=== PATIENT | female | born 1950 | race Caucasian/White ===

== ENCOUNTER 2017-12-03 06:16 | Day surgery (SDC) | payer MEDICARE ==
--- NOTE | 2017-11-25 15:05 | HP ---
AMENDED REPORT NOW INCLUDES COSIGNER DESIGNATION - ESIGNED BEFORE ADJUSTMENTS PREOPERATIVE HISTORY AND PHYSICAL: DATE OF SURGERY/ADMISSION: 12/03/17 DATE OF OFFICE VISIT: 11/11/17 ATTENDING PHYSICIAN: Dr. Nadiya Marcelo.* (DICTATED BY JUSTIN LOUIS) PROCEDURE: Right wrist pisiform excision. CHIEF COMPLAINT: Right wrist pain. HISTORY OF PRESENT ILLNESS: Kimberly is a 67-year-old female who has had right wrist pain since May. She fell down. She complains of persistent pain in the ulnar aspect of her wrist with swelling. It is painful with wrist motion, constantly painful, 5/10. She denies numbness or tingling associated with it. She had a cortisone injection, which helped temporarily. She has failed conservative treatment and has elected to proceed with right wrist pisiform excision. PAST MEDICAL HISTORY: Unremarkable. PAST SURGICAL HISTORY: Bilateral thumb CMC joint arthroplasty, hysterectomy, oophorectomy. MEDICATIONS: 1. B6 natural 100 mg. 2. Estradiol 0.0375 mg. 3. Magnesium oxide 400 mg. 4. Ranitidine 150 mg. 5. Turmeric. ALLERGIES: BACTRIM, CODEINE, MORPHINE, NUCYNTA, SULFA, and TRAMADOL. FAMILY HISTORY: Unremarkable. SOCIAL HISTORY: She denies tobacco, alcohol or recreational drug use. REVIEW OF SYSTEMS: General: Negative for fevers, chills, night sweats. No known anesthesia problems. HEENT: Negative for headaches, lightheadedness, or syncopal episodes. Integumentary: Negative for abrasions, lesions, or open wounds. Cardiothoracic: Negative for chest pain, palpitations, or edema. Negative for hypertension. Pulmonary: Negative for shortness of breath with exertion, chronic cough, COPD. GI: Negative for nausea, vomiting, diarrhea, constipation, or GERD. : Negative for nocturia, urinary frequency. She has positive urinary urgency. Negative for history of UTIs, kidney problems. Musculoskeletal: Positive for current complaints. Negative for chronic or intermittent back pain or fractures. Neuro: Negative for paresthesias, numbness , history of seizures, stroke or epilepsy. Endocrine: Negative for diabetes or thyroid issues. Hematologic: Negative for easy bruising, anemia, excessive bleeding, or history of DVT. Negative for history of MRSA, hepatitis C, or HIV. PHYSICAL EXAMINATION GENERAL: Well-developed, well-nourished 67-year-old female in no acute distress. VITAL SIGNS: Height 64 inches, pulse is 94, blood pressure is 128/70, respirations 16, temperature is 97.3. Pain 2/10. HEENT: Head is normocephalic, atraumatic. NECK: Supple with no palpable lymph nodes. PULMONARY: Lungs clear to auscultation bilaterally. No wheezes, rales, or rhonchi. CARDIO: Regular rate and rhythm. S1, S2. No murmurs, rubs, or gallops. No edema. ABDOMEN: Positive bowel sounds, soft, nontender. NEUROLOGICAL: Alert and oriented x3. Cranial nerves II through XII grossly intact. Sensation intact to light touch distally. MUSCULOSKELETAL: Right wrist, she has pain on the ulnar aspect of her wrist mostly every day. She is tender to palpation between her ECU and FCU tendon. She also gets occasional tingling and numbness in her ulnar nerve distribution. She has positive Tinel's sign over the ulnar nerve at her wrist today. 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 There is a full-thickness cartilage loss, small radiocarpal, mid carpal and distal radioulnar joint effusion. IMPRESSION: Right wrist mass and pain. PLAN: She is scheduled to undergo a right wrist pisiform excision. She will return to the office in 10 to 14 days postop for followup and suture removal. JUSTIN LOUIS [id number]/[facility] #: [id number] [facility]
[~2017-12-03 06:16] MED LIST: Buffered Lidocaine 0.9% SYRIN* 5 ML/SYR SYRINGE INTRADERM ONE; Famotidine IV* 10 MG/ML 2 ML (20 mg) IV ONE
[2017-12-03] MEDS ORDERED: Famotidine IV* 10 MG/ML 2 ML (20 mg) ONE (06:28)
[2017-12-03] MEDS ORDERED: Lidocaine 1% INJ* 10 MG/ML 30 ML SDV ONE (07:06)
[2017-12-03] MEDS ORDERED: Midazolam* 1 MG/ML 5 ML VIAL (5 MG) ONE (07:20)
[2017-12-03] MEDS ORDERED: fentaNYL* 50 MCG/ML 2 ML VIAL (100 MCG VIAL) ONE (07:20)
[2017-12-03] MEDS ORDERED: Bupivacaine 0.5% SDV PF* 30ML VIAL ONE (07:54)
[2017-12-03] MEDS ORDERED: Lidocaine 2% PF * 5 ML VIAL ONE (07:57)
[2017-12-03] MEDS ORDERED: Ondansetron INJ* 2 MG/ML VIAL ONE (07:57)
[2017-12-03] MEDS ORDERED: Dexamethasone IV* 4 MG/ML 1 ML (4 MG) ONE (07:57)
[2017-12-03] MEDS ORDERED: DiMENhydriNATE IV* 50 MG/ML VIAL ONE (07:57)
[2017-12-03] MEDS ORDERED: Propofol* 10 MG/ML 20 ML BTL IV PUSH ONE (07:57)
[2017-12-03] MEDS ORDERED: Ketorolac INJ* 30 MG/ML 1 ML VIAL ONE (07:57)
[2017-12-03] MEDS ORDERED: Acetaminophen TAB* 325 MG PO PRN (08:42)
[2017-12-03] MEDS ORDERED: Naloxone* 0.4 MG/ML 1 ML VIAL IV PRN (08:42)
[2017-12-03] MEDS ORDERED: HYDROmorphone INJ* 1 MG/ML CARPUJECT SYRINGE IV PRN (08:42)
[2017-12-03 09:08] VITALS: BP 127/73
--- NOTE | 2017-12-04 02:09 | OP ---
CC: Nadiya Marcelo MD OPERATIVE NOTE: DATE OF OPERATION: 12/03/17 DATE OF : 50 SURGEON: Nadiya Marcelo MD ATTENDING PATHOLOGIST: JUSTIN Pérez ANESTHESIA: General. PRE-OP DIAGNOSIS: Right pisotriquetral arthritis. POST-OP DIAGNOSIS: Right pisotriquetral arthritis. OPERATIVE PROCEDURE: Right pisiform excision. ESTIMATED BLOOD LOSS: Zero. TOURNIQUET TIME: About 25 minutes. INDICATIONS FOR PROCEDURE: Kimberly is a 67-year-old female who has pain on the ulnar aspect of her wr ist. MRI shows pisotriquetral arthritis. She presents for pisiform excision. DESCRIPTION OF PROCEDURE: The patient was brought to the operating room, was given a general anesthe tic and placed in the supine position on the operating room table. With the tourniquet around her rig ht forearm, the skin of her right hand and forearm was prepped and draped in the usual sterile fashio n. The hand and forearm were exsanguinated and the tourniquet elevated to 250 mmHg. A chevron incis ion was made centered over the pisiform. We dissected bluntly through the subcutaneous tissue. Bran ches of the ulnar nerve were located and retracted by the surgical instrument mechanic, Etelvina Aguilera. The FC U tendon was then split longitudinally and carefully dissected off the pisiform. The pisotriquetral capsule was carefully subperiosteally dissected off the pisiform while the ulnar nerve was protected. The surgical instrument mechanic, Etelvina Aguilera, was essential for completion of the case in a safe manner by protecting the ulnar nerve. Pisiform was completely excised and sent for pathology. The wound was irrigated. The FCU tendon was repaired with a 4- 0 nylon suture and the skin edges reapproximated wi th 4-0 nylon suture. The wound was dressed with Xeroform, 4x4, Webril and an Anthony wrap. The patient tolerated the procedure well, was brought to the recovery room in good condition. [id number]/[facility] #: [id number]
== END 2017-12-03 09:19 | disposition home or self-care (01) ==
LOC: OREAST 06:16
PROVIDERS: ATTEND Orthopaedic Surgery
DX: M19.031 Primary osteoarthritis, right wrist (principal); I10 Essential (primary) hypertension; D46.9 Myelodysplastic syndrome, unspecified; M19.90 Unspecified osteoarthritis, unspecified site; K44.9 Diaphragmatic hernia without obstruction or gangrene; K21.9 Gastro-esophageal reflux disease without esophagitis
CPT/HCPCS: 88304; 88311; J1100; J1240; J1885; J2250; J2405; J2704; J3010

== ENCOUNTER 2020-04-17 18:11 | Inpatient (IN) ==
[2020-04-17] MEDS ORDERED: Heparin - STEMI 5,000 UNITS/ML 1 ml VIAL IV ONE (18:26)
[2020-04-17 18:33] LABS: ABS Lymphocytes 1.7 10^3/ul (1.0-4.8); ABS Monocytes 0.6 10^3/ul (0-0.8); ABS Neutrophils 1.2 10^3/ul (1.5-7.7); Eosinophil % 0.4 %; Hematocrit 44 % (35-47); Hemoglobin 15.2 g/dL (12.0-16.0); Lymphocyte % 47.6 %; Mean Corpuscular HGB Conc 35 g/dL (31-36); Mean Corpuscular Hemoglobin 32 pg (27-31); Mean Corpuscular Volume 92 fL (80-97); Mean Platelet Volume 7.9 fL (7.4-10.4); Platelet Count 332 10^3/uL (150-450); Red Blood Count 4.83 10^6 /uL (3.70-4.87); Red Cell Distribution Width 14 % (10-15); White Blood Count 3.5 10^3/uL (3.5-10.8)
[2020-04-17 18:41] LABS: Activated Partial Thrombo Time 27.4 seconds (26.0-38.0); INR 0.94 (0.82-1.09)
[2020-04-17] MEDS ORDERED: Heparin 1,000 UNIT/ML 10 ml (10,000 UNITS) CATHLAB/DIALYSIS ONE (18:44)
[2020-04-17] MEDS ORDERED: VERAPAMIL 2.5 MG/ML 2 ML VIAL ** 5 mg/2 ml ONE (18:44)
[2020-04-17] MEDS ORDERED: fentaNYL 100 mcg/2 ml 50 MCG/ML VIAL ONE (18:44)
[2020-04-17] MEDS ORDERED: Midazolam 5 mg/5 ml VIAL 1 mg/ml 5 ml VIAL (5 mg) ONE (18:44)
[2020-04-17] MEDS ORDERED: nitroGLYCERIN DRIP 25,000 MCG/250 ML BTL ONE (18:45)
[2020-04-17] MEDS ORDERED: Iohexol 350 (CONTRAST) 200 ML MDV IV ONE ×2 (18:45→18:46)
[2020-04-17] MEDS ORDERED: Lidocaine 1% VIAL 10 MG/ML VIAL ONE (18:45)
[2020-04-17] MEDS ORDERED: Heparin 2 UNITS/ML 1000 mls 3,000 ML IV ONE (18:45)
[2020-04-17 18:50] LABS: ALT 22 U/L (7-52); AST 25 U/L (13-39); Albumin 4.3 g/dL (3.2-5.2); Albumin/Globulin Ratio 1.3 (1-3); Alkaline Phosphatase 57 U/L (34-104); Anion Gap 11 mmol/L (2-11); BUN/Creatinine Ratio 12.8 (8-20); Blood Urea Nitrogen 10 mg/dL (6-24); CO2 Carbon Dioxide 22 mmol/L (22-32); Calcium 8.7 mg/dL (8.6-10.3); Chloride 104 mmol/L (101-111); Creatine Kinase 75 U/L (10-223); EGFR African American 88.6 (>60); EGFR Non-African American 73.2 (>60); Globulin 3.3 g/dL (2-4); Glucose 134 mg/dL (70-100); LDL Cholesterol Direct 114 mg/dL; Potassium 3.6 mmol/L (3.5-5.0); Sodium 137 mmol/L (135-145); Total Protein 7.6 g/dL (6.4-8.9)
[2020-04-17 18:54] LABS: Troponin I 0.08 ng/mL (<0.03)
[2020-04-17] MEDS ORDERED: Phenylephrine IV 10 MG/ML 1 ml VIAL ONE (19:38)
[2020-04-17] MEDS ORDERED: Atropine 0.1 MG/ML 10 ml SYR (1 mg) ONE (20:01)
[2020-04-17] MEDS ORDERED: NS 0.9% IV ONE (20:12)
[2020-04-17] MEDS ORDERED: Ondansetron 4 mg VIAL 2 MG/ML 2 ml VIAL ONE (20:23)
[2020-04-17] MEDS ORDERED: oxyCODONE/Acetamin 5/325 mg TAB PO PRN (20:41)
[2020-04-17] MEDS ORDERED: Ondansetron 4 mg VIAL 2 MG/ML 2 ml VIAL IV PRN (20:47)
[2020-04-17 22:30] LABS: Troponin I 2.35 ng/mL (<0.03)
[2020-04-18 01:05] LABS: Troponin I 4.89 ng/mL (<0.03)
[2020-04-18 04:28] LABS: ABS Lymphocytes 1.4 10^3/ul (1.0-4.8); ABS Monocytes 0.7 10^3/ul (0-0.8); ABS Neutrophils 3.5 10^3/ul (1.5-7.7); Hematocrit 41 % (35-47); Hemoglobin 13.9 g/dL (12.0-16.0); Lymphocyte % 24.3 %; Mean Corpuscular HGB Conc 34 g/dL (31-36); Mean Corpuscular Hemoglobin 31 pg (27-31); Mean Corpuscular Volume 92 fL (80-97); Mean Platelet Volume 7.7 fL (7.4-10.4); Platelet Count 289 10^3/uL (150-450); Red Blood Count 4.46 10^6 /uL (3.70-4.87); Red Cell Distribution Width 14 % (10-15); White Blood Count 5.6 10^3/uL (3.5-10.8)
[2020-04-18 04:49] LABS: Anion Gap 4 mmol/L (2-11); BUN/Creatinine Ratio 14.3 (8-20); Blood Urea Nitrogen 10 mg/dL (6-24); CO2 Carbon Dioxide 24 mmol/L (22-32); Calcium 7.9 mg/dL (8.6-10.3); Chloride 109 mmol/L (101-111); EGFR African American 100.4 (>60); Glucose 102 mg/dL (70-100); Potassium 3.8 mmol/L (3.5-5.0); Sodium 137 mmol/L (135-145)
[2020-04-18 04:57] LABS: Troponin I 10.02 ng/mL (<0.03)
[2020-04-18] MEDS: Aspirin EC 81 mg TAB.EC (enteric coated) PO SCH (09:13)
[2020-04-18 09:57] LABS: Troponin I 10.47 ng/mL (<0.03)
[2020-04-18 15:01] LABS: Troponin I 8.87 ng/mL (<0.03)
[2020-04-19] MEDS: Aspirin EC 81 mg TAB.EC (enteric coated) PO SCH (07:30)
[2020-04-20] MEDS: Aspirin EC 81 mg TAB.EC (enteric coated) PO SCH (08:10)
[2020-04-20 08:11] VITALS: BP 122/81
[2020-04-20] MEDS ORDERED: Influenza VAC *QUAD* 2020-21* 0.5 ML SYRINGE IM ONE (09:00)
[2020-04-20 09:11] LABS: Troponin I 3.45 ng/mL (<0.03)
== END 2020-04-20 10:15 | disposition home or self-care (01) | DRG 247 ==
LOC: ED 18:11 → CHICATH 19:06 → ICU 19:10 → MEDTELE 04-18 17:08
PROVIDERS: ADMIT Internal Medicine Cardiovascular Disease; ATTEND Internal Medicine Cardiovascular Disease

== ENCOUNTER 2021-08-16 08:33 | Observation (INO) ==
[2021-08-16 09:19] LABS: Hematocrit 44 % (35-47); Hemoglobin 14.9 g/dL (12.0-16.0); Mean Corpuscular HGB Conc 34 g/dL (31-36); Mean Corpuscular Hemoglobin 31 pg (27-31); Mean Corpuscular Volume 90 fL (80-97); Mean Platelet Volume 7.6 fL (7.4-10.4); Platelet Count 310 10^3/uL (150-450); Red Blood Count 4.89 10^6 /uL (3.70-4.87); Red Cell Distribution Width 15 % (10-15)
[2021-08-16 09:22] LABS: ABS Neutrophils 0.9 10^3/ul (1.5-7.7)
[2021-08-16 09:25] LABS: INR 1.05 (0.86-1.15)
[2021-08-16 09:36] LABS: Albumin 4.2 g/dL (3.2-5.2); Albumin/Globulin Ratio 1.2 (1-3); Calcium 9.6 mg/dL (8.6-10.3); Globulin 3.5 g/dL (2-4); Potassium 4.4 mmol/L (3.5-5.0); Total Bilirubin 0.4 mg/dL (0.2-1.0); Total Protein 7.7 g/dL (6.4-8.9); eGFR CKD-EPI 64.5 (>60)
[2021-08-16 09:42] LABS: ABS Lymphocytes 1.5 10^3/ul (1.0-4.8); ABS Monocytes 0.6 10^3/ul (0-0.8); Eosinophil % 1.6 %; Lymphocyte % 49.3 %; Nucleated Red Blood Cells % 0.1
[2021-08-16] MEDS: Enoxaparin 40 MG/0.4 ML SYR SUBCUT SCH (11:41)
[2021-08-16 11:56] LABS: HDL Cholesterol 78.5 mg/dL
[2021-08-16] MEDS: NF: Azelastine/Fluticasone 137-50 MCG BTL (NF) BOTH NARES SCH (22:36)
[2021-08-17 06:02] LABS: ABS Eosinophils 0.1 10^3/ul (0-0.6); ABS Lymphocytes 1.8 10^3/ul (1.0-4.8); ABS Monocytes 0.7 10^3/ul (0-0.8); ABS Neutrophils 1.1 10^3/ul (1.5-7.7); Eosinophil % 2.2 %; Hematocrit 43 % (35-47); Hemoglobin 14.5 g/dL (12.0-16.0); Lymphocyte % 48.5 %; Mean Corpuscular HGB Conc 34 g/dL (31-36); Mean Corpuscular Hemoglobin 30 pg (27-31); Mean Corpuscular Volume 90 fL (80-97); Mean Platelet Volume 7.7 fL (7.4-10.4); Nucleated Red Blood Cells % 0.1; Platelet Count 293 10^3/uL (150-450); Red Blood Count 4.81 10^6 /uL (3.70-4.87); Red Cell Distribution Width 15 % (10-15); White Blood Count 3.7 10^3/uL (3.5-10.8)
[2021-08-17] MEDS: NF: Azelastine/Fluticasone 137-50 MCG BTL (NF) BOTH NARES SCH (07:59)
[2021-08-17] MEDS ORDERED: Regadenoson 0.4 MG/5 ML SYRINGE ONE (08:04)
[2021-08-17] MEDS ORDERED: Aminophylline 25 MG/ML VIAL ONE (08:04)
[2021-08-17] MEDS ORDERED: Aspirin EC 81 mg TAB.EC (enteric coated) PO SCH (09:00)
[2021-08-17] MEDS ORDERED: [UNRECOGNIZED DRUG - OTHER] PO SCH (09:00)
[2021-08-17] MEDS ORDERED: Calcium/Vitamin D TAB 250/125 TAB PO SCH (09:00)
[2021-08-17] MEDS: Enoxaparin 40 MG/0.4 ML SYR SUBCUT SCH (11:44)
[2021-08-17 12:53] VITALS: BP 125/72
== END 2021-08-17 15:25 | disposition home or self-care (01) ==
LOC: EDHOLD 08:33 → ED 08:33 → SUATTDRO 11:24 → EDHOLD 13:42 → MEDTELE 14:22
PROVIDERS: ADMIT Student in an Organized Health Care Education/Training Program; ATTEND Internal Medicine

== ENCOUNTER 2023-08-08 06:32 | Inpatient (IN) ==
[2023-08-08 07:06] LABS: Rapid COVID-19 Molecular Undetected (Undetected)
[2023-08-08] MEDS ORDERED: Tranexamic Acid 1 GM/100ML BAG 2,000 MG/200 ML BAG IV ONE (07:08)
[2023-08-08] MEDS ORDERED: ceFAZolin 2 GM in NS PREMIX 2 GM/100 ML BAG IVPB ONE (07:09)
[2023-08-08] MEDS ORDERED: Famotidine IV 10 MG/ML 2 ml VIAL (20 mg) ONE (07:09)
[2023-08-08] MEDS ORDERED: ROPIVACAINE 5 MG/ML 30 ML BTL (0.5%) ONE ×2 (07:15→08:05)
[2023-08-08] MEDS: Famotidine IV 10 MG/ML 2 ml VIAL (20 mg) IV ONE (07:22)
[2023-08-08] MEDS ORDERED: Rocuronium 50 mg VIAL 10 mg/ml 5 ml VIAL (50 mg) ONE (07:46)
[2023-08-08] MEDS ORDERED: Midazolam 2 mg/2 ml VIAL 1 mg/ml 2 ml VIAL (2 mg) ONE ×2 (07:46→08:05)
[2023-08-08] MEDS ORDERED: fentaNYL 250 mcg/5 ml 50 MCG/ML 5 ml VIAL (250 MCG) ONE (07:46)
[2023-08-08] MEDS ORDERED: Lidocaine 2% PF 5 ML VIAL ONE ×2 (07:48→11:22)
[2023-08-08] MEDS ORDERED: Propofol 10 MG/ML 20 ML BTL ONE (07:48)
[2023-08-08] MEDS ORDERED: fentaNYL 100 mcg/2 ml 50 MCG/ML VIAL ONE ×2 (08:05→12:40)
[2023-08-08] MEDS ORDERED: Scopolamine 1 mg/72hr PATCH ONE (08:19)
[2023-08-08] MEDS ORDERED: Naloxone 0.4 mg VIAL 0.4 mg/ml 1 ml VIAL IV PRN (09:00)
[2023-08-08] MEDS ORDERED: Dexamethasone IV 4 MG/ML VIAL 1 ml VIAL ONE (09:53)
[2023-08-08] MEDS ORDERED: Ondansetron 4 mg VIAL 2 MG/ML 2 ml VIAL ONE (09:53)
[2023-08-08] MEDS ORDERED: HYDROmorphone 0.5 MG/0.5 ML SYRINGE ONE (10:07)
[2023-08-08] MEDS ORDERED: Phenylephrine 40 mcg/mL 10mL (400mcg) SYRINGE ONE (11:16)
[2023-08-08] MEDS ORDERED: Lactulose 30 ml UDC PO PRN (12:23)
[2023-08-08] MEDS ORDERED: Ondansetron 4 mg VIAL 2 MG/ML 2 ml VIAL IV PRN (12:23)
[2023-08-08] MEDS ORDERED: Magnesium Hydroxide LIQ 30 ML UDC PO PRN (12:23)
[2023-08-08] MEDS ORDERED: Ondansetron ODT 4 mg TAB 4 MG TAB PO PRN (12:23)
[2023-08-08] MEDS: fentaNYL 100 mcg/2 ml 50 MCG/ML VIAL IV PRN (12:42)
[2023-08-08] MEDS ORDERED: HYDROmorphone 1 MG/1 ML SYRINGE ONE (13:01)
[2023-08-08] MEDS: HYDROmorphone 1 MG/1 ML SYRINGE IV PRN (13:03)
[2023-08-08] MEDS: Lactated Ringers 1000 ml BAG 1,000 ML IV SCH ×2 (14:29→18:07)
[2023-08-08] MEDS: Morphine 2 MG/ML SYRINGE IV PRN (15:53)
[2023-08-08] MEDS: Scopolamine 1 mg/72hr PATCH TRANSDERM SCH (18:03)
[2023-08-08] MEDS: Buffered Lidocaine 1% SYRIN 1 ml INTRADERM ONE (18:03)
[2023-08-08] MEDS: ceFAZolin 1 GM ADVAN 1 GM in NS 0.9% 50 ML 50 ML IVPB SCH (18:15)
[2023-08-08] MEDS: Magnesium Hydroxide LIQ 30 ML UDC PO SCH (21:22)
[2023-08-09 06:08] LABS: Platelet Count 222 10^3/uL (150-450)
[2023-08-09 06:31] LABS: Calcium 7.9 mg/dL (8.6-10.3); Creatinine, Serum 0.91 mg/dL (0.51-0.95); Potassium 3.8 mmol/L (3.5-5.0)
[2023-08-09 07:50] LABS: Hemoglobin 10.2 g/dL (11.5-14.3); Mean Platelet Volume 8.5 fL (7.5-11.2)
[2023-08-09] MEDS: Vitamin THERAPEUTIC TAB PO SCH (08:17)
[2023-08-09 12:32] VITALS: BP 119/72
== END 2023-08-09 13:20 | disposition home or self-care (01) | DRG 470 ==
LOC: AA 06:32 → SSU 12:23
PROVIDERS: ADMIT Orthopaedic Surgery Adult Reconstructive Orthopaedic Surgery; ATTEND Orthopaedic Surgery Adult Reconstructive Orthopaedic Surgery